=== PATIENT | female | born 1980 | race Caucasian/White ===

== ENCOUNTER 2016-05-13 07:08 | Emergency (ER) | payer OTHER ==
[2016-05-13 07:30] VITALS: BP 109/72
--- NOTE | 2016-05-13 07:59 | UC ---
FLU HPI - HPI Summary HPI Summary: PT HAS BEEN FEELING FATIGUED AND "RUN DOWN" FOR ABOUT A WEEK. LAST NIGHT DEVELOPED MIGRAINE SAMPSON AND THIS MORNING N/V, BODY ACHES, CHILLS, CHEST CONGESTION AND COUGH. - History of Current Complaint Chief Complaint: UCGeneralIllness Stated Complaint: FLU COMPLAINT Time Seen by Provider: 05/13/16 07:50 Hx Obtained From: Patient Hx Last Menstrual Period: 2 days ago Onset/Duration: Gradual Onset, Lasting Days, Still Present Severity Currently: Moderate Severity Initially: Moderate Pain Intensity: 8 Pain Scale Used: 0-10 Numeric Associated Signs & Symptoms: Positive: Fever - SUBJECTIVE, Myalgia, Cough, Sore Throat, Nasal Congestion, Headache, Vomiting - Allergy/Home Medications Allergies/Adverse Reactions: Allergies Allergy/AdvReac Type Severity Reaction Status Date / Time Sulfa Drugs Allergy Severe DISORIENTAT Verified 05/13/16 07:21 ION Morphine Allergy MIGRAINES Verified 05/13/16 07:21 Home Medications: Home Medications [id number] [Nyquil Severe Cold/Flu 5-6.25-10-325 mg/15Ml] 1 PO PRN 05/13/16 [History] PMH/Surg Hx/FS Hx/Imm Hx Endocrine History Of: Denies: Diabetes, Thyroid Disease Cardiovascular History Of: Denies: Cardiac Disorders, Hypertension, Pacemaker/ICD, Congestive Heart Failure Respiratory History Of: Denies: COPD, Asthma GI/ History Of: Denies: Ulcer, Renal Disease Neurological History Of: Reports: Migraine - TAKING MED. FOR Psychological History Of: Reports: Anxiety - SLIGHT? - Surgical History Surgical History: None Surgery Procedure, Year, and Place: CYST REMOVED FROM [id number]. GRANULA REMOVED FROM MOUTH-1987 - Family History Known Family History: Negative: Blood Disorder - Social History Alcohol Use: Occasionally Substance Use Type: None Smoking Status (MU): Never Smoked Tobacco - Immunization History Most Recent Influenza Vaccination: doesn't get Review of Systems Constitutional: Fever, Chills, Fatigue ENT: Sore Throat, Nasal Discharge Respiratory: Cough Cardiovascular: Negative Gastrointestinal: Vomiting, Other - NAUSEA Musculoskeletal: Myalgia Neurological: Headache All Other Systems Reviewed And Are Negative: Yes Physical Exam Triage Information Reviewed: Yes Appearance: No Pain Distress, Well-Nourished, Ill-Appearing - MODERATE Vital Signs: Initial Vital Signs Temp 99.3 F 05/13/16 07:23 Pulse 85 05/13/16 07:23 Resp 19 05/13/16 07:23 BP 109/72 05/13/16 07:23 Pulse Ox 100 05/13/16 07:23 Vital Signs Reviewed: Yes Eyes: Positive: Conjunctiva Clear ENT: Positive: Hearing grossly normal, Pharynx normal, TMs normal Neck: Positive: Supple, Nontender, No Lymphadenopathy Respiratory Exam: Normal Cardiovascular Exam: Normal Abdomen Description: Positive: Soft Musculoskeletal: Positive: No Edema Neurological: Positive: Alert Psychological: Positive: Normal Response To Family, Age Appropriate Behavior Skin: Negative: rashes Diagnostics - Laboratory Diagnostic Studies Completed/Ordered: RAPID FLU NEGATIVE Flu Course/Dx - Differential Dx/Diagnosis Provider Diagnoses: ACUTE VIRAL SYNDROME Discharge - Discharge Plan Condition: Stable Disposition: HOME Patient Education Materials: Viral Syndrome (ED) Referrals: Savita Campos MD [Primary Care Provider] - If Needed Additional Instructions: REST, HYDRATE, OTC MEDS NEEDED. SYMPTOMS USUALLY PEAK AROUND DAYS 3-5 AND THEN RESOLVE OVER 1- 2 WEEKS. SEEK FOLLOW-UP IF YOU ARE NOT IMPROVING EXPECTED. FLU SWAB NEGATIVE VIRAL SYNDROME: The physician has diagnosed a viral infection. Viruses not only cause "colds," but can cause many different symptoms including generalized aching, fever, headache, cough, diarrhea, nausea, vomiting, and fatigue. The treatment, for the most part, is simply relief of symptoms. This means that antibiotics are usually not given. Rest, fluids, pain medications and, occasionally, medication for the specific symptoms that are most bothersome will be prescribed. Contact the physician if you develop any new or unusual symptoms such as severe headache, stiff neck, high fever, chest pain, productive cough, or shortness of breath. You should be rechecked if you don't see marked improvement within seven to 10 days.
== END 2016-05-13 08:15 | disposition home or self-care (01) ==
LOC: UCEAST 07:08
DX: R51 Headache (principal); R11.2 Nausea with vomiting, unspecified; R05 Cough; R50.9 Fever, unspecified; B34.9 Viral infection, unspecified
CPT/HCPCS: 87502; 99211; G0463

== ENCOUNTER 2017-05-05 15:59 | Emergency (ER) | payer OTHER ==
[2017-05-05 18:19] VITALS: BP 123/69
--- NOTE | 2017-05-08 16:01 | UC ---
- Progress Note Progress Note: please notify pt NO BV may stop Flagyl should see her MD if not better
--- NOTE | 2017-05-30 15:46 | UC ---
Complaint Female HPI - HPI Summary HPI Summary: urinary pain burning urgency and vaginal itching with odor - History Of Current Complaint Chief Complaint: UCGU Stated Complaint: FREQUENT AND BURNING UNRINATION Time Seen by Provider: 05/05/17 17:19 Hx Obtained From: Patient Hx Last Menstrual Period: 04/26/17 ?: No Onset/Duration: Gradual Onset, Lasting Days, Still Present Timing: Constant Severity Initially: Mild Severity Currently: Mild Pain Intensity: 3 Pain Scale Used: 0-10 Numeric Character: Burning Aggravating Factor(s): Urination Associated Signs And Symptoms: Positive: Vaginal Discharge - Allergies/Home Medications Allergies/Adverse Reactions: Allergies Allergy/AdvReac Type Severity Reaction Status Date / Time MS Sulfa Drugs [Sulfa Drugs] Allergy Severe DISORIENTAT Verified 05/05/17 16:15 ION MS Morphine [Morphine] Allergy MIGRAINES Verified 05/05/17 16:15 PMH/Surg Hx/FS Hx/Imm Hx Previously Healthy: No Neurological History: Migraine - Surgical History Surgical History: None Surgery Procedure, Year, and Place: CYST REMOVED FROM [id number]. GRANULA REMOVED FROM MOUTH-1987 - Family History Known Family History: Negative: Blood Disorder - Social History Occupation: Employed Full-time Lives: With Family Alcohol Use: Occasionally Substance Use Type: None Smoking Status (MU): Never Smoked Tobacco - Immunization History Most Recent Influenza Vaccination: doesn't get Review of Systems Constitutional: Negative Skin: Negative Eyes: Negative ENT: Negative Respiratory: Negative Cardiovascular: Negative Gastrointestinal: Negative Genitourinary: Frequency, Urgency, Vaginal/Penile Burning, Vaginal/Penile Itching, Vaginal/Penile Discharge Motor: Negative Neurovascular: Negative Musculoskeletal: Negative Neurological: Negative Psychological: Negative Is Patient Immunocompromised?: No All Other Systems Reviewed And Are Negative: Yes Physical Exam Triage Information Reviewed: Yes Appearance: Well-Appearing, No Pain Distress, Well-Nourished Vital Signs: Initial Vital Signs Temp 99.1 F 05/05/17 16:10 Pulse 74 05/05/17 16:10 Resp 14 05/05/17 16:10 BP 95/54 05/05/17 16:10 Pulse Ox 100 05/05/17 16:10 Vital Signs Reviewed: Yes Eye Exam: Normal Eyes: Positive: Conjunctiva Clear ENT Exam: Normal ENT: Positive: Normal ENT inspection, Hearing grossly normal. Negative: Muffled voice, Hoarse voice, Dental tenderness, Sinus tenderness Dental Exam: Normal Neck exam: Normal Neck: Positive: Supple, Nontender Respiratory Exam: Normal Respiratory: Positive: Chest non-tender, No respiratory distress, No accessory muscle use Cardiovascular Exam: Normal Cardiovascular: Positive: RRR, No Murmur, Pulses Normal, Brisk Capillary Refill Abdominal Exam: Normal Abdomen Description: Positive: Nontender, No Organomegaly, Soft. Negative: CVA Tenderness (R), CVA Tenderness (L) Bowel Sounds: Positive: Present Musculoskeletal Exam: Normal Musculoskeletal: Positive: Strength Intact, ROM Intact Neurological Exam: Normal Neurological: Positive: Alert, Muscle Tone Normal Psychological Exam: Normal Skin Exam: Normal Complaint Female Dx - Course Course Of Treatment: flagyl, lab studies follow with pcp - Differential Dx/Diagnosis Provider Diagnoses: BActerial VAginosis Discharge - Discharge Plan Condition: Stable Disposition: HOME Prescriptions: metroNIDAZOLE [Flagyl 500 MG TAB] 500 mg PO BID #14 tab Patient Education Materials: Bacterial Vaginosis (ED) Referrals: Savita Campos MD [Primary Care Provider] - 1 Week
== END 2017-05-05 18:27 | disposition home or self-care (01) ==
LOC: UCEAST 15:59
DX: N76.0 Acute vaginitis (principal); B96.89 Other specified bacterial agents as the cause of diseases classified elsewhere; Z88.2 Allergy status to sulfonamides; Z88.5 Allergy status to narcotic agent
CPT/HCPCS: 81003; 81025; 87480; 87491; 87510; 87591; 87661; 99212; G0463

== ENCOUNTER 2017-07-25 00:22 | Emergency (ER) | payer OTHER ==
[2017-07-25] MEDS ORDERED: Bisacodyl SUPP* 10 MG SUPP PR ONE (01:29)
[2017-07-25] MEDS ORDERED: Metoclopramide IV* 5 MG/ML 2 ML VIAL IV SLOW PU ONE (03:28)
[2017-07-25 04:13] LABS: ABS Basophils 0 10^3/ul (0-0.2); ABS Eosinophils 0 10^3/ul (0-0.6); ABS Lymphocytes 1.1 10^3/ul (1.0-4.8); ABS Monocytes 0.5 10^3/ul (0-0.8); ABS Nucleated RBC 0 10^3/ul; Eosinophil % 0.4 % (0-6); Hematocrit 32 % (35-47); Hemoglobin 10.8 g/dl (12.0-16.0); Lymphocyte % 12.1 % (25-47); Mean Corpuscular HGB Conc 34 g/dl (31-36); Mean Corpuscular Hemoglobin 27 pg (27-31); Mean Corpuscular Volume 81 fL (80-97); Mean Platelet Volume 9.7 um3 (7.4-10.4); Nucleated Red Blood Cells % 0; Platelet Count 216 10^3/ul (150-450); Red Blood Count 3.97 10^6/ul (4.0-5.4); Red Cell Distribution Width 15 % (10.5-15); White Blood Count 8.7 10^3/ul (3.5-10.8)
[2017-07-25 04:29] LABS: EGFR Non-African American 135.7 (>60)
[2017-07-25 05:23] LABS: Urine Appearance Cloudy; Urine Blood Negative (Negative); Urine Color Yellow; Urine Ketones 2+ (Negative); Urine Protein Negative (Negative); Urine Specific Gravity 1.021 (1.010-1.030); Urine Urobilinogen Negative (Negative)
[2017-07-25 05:45] VITALS: BP 106/78
--- NOTE | 2017-08-09 05:41 | ED ---
Jacob Palencia Tecjoon, scribed for Gucci López MD on 07/25/17 at 0121 . Abdominal Pain/Female - HPI Summary HPI Summary: This patient is a 36 year old female presenting to [facility] accompanied by mother with a chief complaint of abd pain since approx. 2100 today. Patient was seen earlier for LLQ. The pain radiates to back. Patient states that the pain has moved from the flank to the front area. The pain is rated 9/10 in severity. Symptoms aggravated by nothing. Symptoms alleviated by nothing. Patient additionally reports nausea, diarrhea. Patient denies vomiting. Patient is 9 weeks . - History of Current Complaint Chief Complaint: EDAbdPain Stated Complaint: ABD PAIN Time Seen by Provider: 07/25/17 00:58 Hx Obtained From: Patient Hx Last Menstrual Period: 04/26/17 Onset/Duration: Lasting Hours, Still Present Severity Currently: Severe Pain Intensity: 9 Pain Scale Used: 0-10 Numeric Location: Discrete At: LLQ, Flank Radiates: Yes Radiates to: Back Aggravating Factor(s): Nothing Alleviating Factor(s): Nothing Associated Signs and Symptoms: Positive: Negative - vomiting, Other: - nausea Allergies/Adverse Reactions: Allergies Allergy/AdvReac Type Severity Reaction Status Date / Time morphine Allergy Severe Anaphylatic Verified 07/24/17 16:21 Shock Sulfa (Sulfonamide Allergy Severe Anaphylatic Verified 07/24/17 16:21 Antibiotics) Shock PMH/Surg Hx/FS Hx/Imm Hx Previously Healthy: No Endocrine/Hematology History: Denies: Hx Diabetes, Hx Thyroid Disease Cardiovascular History: Reports: Hx Angina Denies: Hx Congestive Heart Failure, Hx Coronary Artery Disease, Hx Hypercholesterolemia, Hx Hypertension, Hx Myocardial Infarction, Hx Pacemaker/ ICD, Hx Valvular Heart Disease Respiratory History: Denies: Hx Chronic Obstructive Pulmonary Disease (COPD) Comment Only: Hx Asthma - Patient says "I don't know" GI History: Denies: Hx Ulcer History: Reports: Other Problems/Disorders - HX OF BLADDER INFECTIONS LAST A COUPLE OF MONTHS AGO; ovarian cyst Denies: Hx Renal Disease Sensory History: Reports: Hx Contacts or Glasses - WILL WEAR GLASSES DAY OF SURGERY Denies: Hx Hearing Aid Opthamlomology History: Reports: Hx Contacts or Glasses - WILL WEAR GLASSES DAY OF SURGERY Neurological History: Reports: Hx Headaches, Hx Migraine - TAKING MED. FOR Psychiatric History: Reports: Hx Anxiety - SLIGHT?, Hx Panic Disorder - Surgical History Surgery Procedure, Year, and Place: CYST REMOVED FROM [id number]. GRANULA REMOVED FROM MOUTH-1987 Hx Anesthesia Reactions: No - Immunization History Date of Tetanus Vaccine: UNKNOWN Infectious Disease History: No Infectious Disease History: Denies: Hx Clostridium Difficile, Hx Hepatitis, Hx Human Immunodeficiency Virus (HIV), Hx of Known/Suspected MRSA, Hx Shingles, Hx Tuberculosis, Traveled Outside the [place] in Last 30 Days - Family History Known Family History: Positive: Hypertension, Diabetes Negative: Blood Disorder - Social History Lives: With Family Alcohol Use: Occasionally Alcohol Amount: none since Hx Substance Use: No Substance Use Type: Reports: None Hx Tobacco Use: No Smoking Status (MU): Never Smoked Tobacco Review of Systems Negative: Fever Positive: Abdominal Pain, Diarrhea, Nausea. Negative: Vomiting All Other Systems Reviewed And Are Negative: Yes Physical Exam - Summary Physical Exam Summary: VITAL SIGNS: Reviewed. GENERAL: Patient is a well-developed and nourished female who is lying comfortable in the stretcher. Patient is not in any acute respiratory distress. HEAD AND FACE: No signs of trauma. No ecchymosis, hematomas or skull depressions. No sinus tenderness. EYES: PERRLA, EOMI x 2, No injected conjunctiva, no nystagmus. EARS: Hearing grossly intact. Ear canals and tympanic membranes are within normal limits. MOUTH: Oropharynx within normal limits. NECK: Supple, trachea is midline, no adenopathy, no JVD, no carotid bruit, no c- spine tenderness, neck with full ROM. CHEST: Symmetric, no tenderness at palpation LUNGS: Clear to auscultation bilaterally. No wheezing or crackles. CVS: Regular rate and rhythm, S1 and S2 present, no murmurs or gallops appreciated. ABDOMEN: LLQ tenderness. Hyperactive bowel sounds. EXTREMITIES: FROM in all major joints, no edema, no cyanosis or clubbing. NEURO: Alert and oriented x 3. No acute neurological deficits. Speech is normal and follows commands. SKIN: Dry and warm Triage Information Reviewed: Yes Vital Signs On Initial Exam: Initial Vitals Temp Pulse Resp BP Pulse Ox 97.5 F 69 18 114/53 100 07/25/17 00:23 07/25/17 00:23 07/25/17 00:07/25/17 00:23 07/25/17 00:23 Vital Signs Reviewed: Yes Diagnostics - Vital Signs Vital Signs Temp Pulse Resp BP Pulse Ox 07/25/17 00:23 97.5 F 69 18 114/53 100 - Laboratory Result Diagrams: 07/25/17 04:00 07/25/17 04:00 Lab Statement: Any lab studies that have been ordered have been reviewed, and results considered in the medical decision making process. Abdominal Pain Fem Course/Dx - Course Course Of Treatment: This patient is a 36 year old female presenting to [facility] accompanied by mother with a chief complaint of abd pain since approx. 2100 today. Patient was seen earlier for LLQ pain. Bloodwork Obtained. Urinalysis Obtained. In the ED course the patient was given Dulcolax, Lactulose, Reglan. Patient will be discharged with a diagnosis of abd pain. Patient is advised to follow up with PCP in 3 days. The patient is agreeable with this plan. - Diagnoses Provider Diagnoses: Abdominal pain Discharge - Sign-Out/Discharge Documenting (check all that apply): Discharge - Discharge Plan Condition: Stable Disposition: HOME Patient Education Materials: Abdominal Pain (ED) Referrals: Savita Campos MD [Primary Care Provider] - 3 Days Additional Instructions: Return to the ED for any new or worsening symptoms. The documentation as recorded by the Jacob sol Tecjoon accurately reflects the service I personally performed and the decisions made by Maribel zimmerman Abdul, MD.
== END 2017-07-25 06:03 | disposition home or self-care (01) ==
LOC: ED 00:22
DX: O26.891 Other specified pregnancy related conditions, first trimester (principal); R10.32 Left lower quadrant pain; R11.0 Nausea; R19.7 Diarrhea, unspecified; Z3A.09 9 weeks gestation of pregnancy; Z88.5 Allergy status to narcotic agent; Z88.2 Allergy status to sulfonamides; I20.9 Angina pectoris, unspecified; G43.909 Migraine, unspecified, not intractable, without status migrainosus; F41.0 Panic disorder [episodic paroxysmal anxiety]
CPT/HCPCS: 36415; 80053; 81003; 82150; 83690; 85025; 86140; 96374; 99283; A9270-GY; J2765

== ENCOUNTER 2017-08-17 15:46 | Emergency (ER) | payer OTHER ==
[2017-08-17 19:54] LABS: ABS Basophils 0.1 10^3/ul (0-0.2); ABS Eosinophils 0.1 10^3/ul (0-0.6); ABS Lymphocytes 1.7 10^3/ul (1.0-4.8); ABS Monocytes 0.6 10^3/ul (0-0.8); ABS Nucleated RBC 0 10^3/ul; Hematocrit 32 % (35-47); Hemoglobin 10.8 g/dl (12.0-16.0); Lymphocyte % 18.2 % (25-47); Mean Corpuscular HGB Conc 34 g/dl (31-36); Mean Corpuscular Hemoglobin 27 pg (27-31); Mean Corpuscular Volume 82 fL (80-97); Mean Platelet Volume 9.6 um3 (7.4-10.4); Nucleated Red Blood Cells % 0; Platelet Count 240 10^3/ul (150-450); Red Blood Count 3.94 10^6/ul (4.0-5.4); Red Cell Distribution Width 15 % (10.5-15); White Blood Count 9.5 10^3/ul (3.5-10.8)
[2017-08-17 20:13] LABS: EGFR Non-African American 126.3 (>60)
--- NOTE | 2017-08-17 20:52 | RAD ---
Indication: Vaginal bleeding. Real-time sonography of the was performed. There is a single intrauterine gestation with movement and heart activity at 165 bpm. Amniotic fluid is within normal limits. The crown-rump length measures 6.4 cm corresponding to gestational age of 12 weeks 6 days. Estimated date of delivery is February 23, 2018. Right ovary measures 3.9 x 1.5 x 2.2 cm. Left ovary measures 4.5 x 2.1 x 3.1 cm with follicle in the left ovary. IMPRESSION: There is a single intrauterine gestation with a gestational age of 12 weeks 6 days. Estimated date of delivery is February 23, 2018. heart activity at 165 bpm. No adnexal masses.
[2017-08-17 20:55] LABS: Urine Appearance Cloudy; Urine Blood 2+ (Negative); Urine Color Yellow; Urine Ketones Negative (Negative); Urine Protein Negative (Negative); Urine Specific Gravity 1.012 (1.010-1.030); Urine Urobilinogen Negative (Negative)
[2017-08-17] MEDS ORDERED: Amoxicillin/Clavulanate TAB* 875 MG PO ONE ×2 (21:22)
--- NOTE | 2017-08-17 21:22 | ED ---
Millicent Palencia Rebecca, scribed for Jacky Crawford MD on 08/17/17 at 1917 . - HPI Summary HPI Summary: Pt is a 37 y/o F who presents to ED c/o vaginal bleeding. Reports that at approximately 1600 she noticed "pink-randal, red-randal" blood when using the bathroom on her toilet paper. Described as more than spotting, and "quite a bit of blood." Since being in the ED, pt reports her symptoms have resolved. Additionally notes mild abdominal cramping, ranked 1/10. Denies dysuria, fever, chills. Notes an episode of severe constipation 3 weeks ago which is predominantly resolved. Pt is currently 12 weeks with a due date of February 28, 2018 and she has been receiving care with Dr. Saha's practice. Blood type is B+. No PSHx on the abdomen. A1 - History of Current Complaint Chief Complaint: EDOBProblems Stated Complaint: 12 WKS PREG/ABNORMAL BLEEDING Time Seen by Provider: 08/17/17 19:09 Hx Obtained From: Patient Chief Complaint: Vaginal Bleeding Onset/Duration: Started Hours Ago, Resolved Current Severity: Mild Pain Intensity: 1 Character: Cramping Aggravating Factors: Nothing Alleviating Factors: Nothing Associated Signs and Symptoms: Positive: Vaginal Bleeding or Discharge - Bleeding. Negative: Fever - Assessment Hx Now: Yes - Allergies/Home Medications Allergies/Adverse Reactions: Allergies Allergy/AdvReac Type Severity Reaction Status Date / Time morphine Allergy Severe Anaphylatic Verified 08/17/17 16:01 Shock Sulfa (Sulfonamide Allergy Severe Anaphylatic Verified 08/17/17 16:01 Antibiotics) Shock PMH/Surg Hx/FS Hx/Imm Hx Endocrine/Hematology History: Denies: Hx Diabetes, Hx Thyroid Disease Cardiovascular History: Reports: Hx Angina Denies: Hx Congestive Heart Failure, Hx Coronary Artery Disease, Hx Hypercholesterolemia, Hx Hypertension, Hx Myocardial Infarction, Hx Pacemaker/ ICD, Hx Valvular Heart Disease Respiratory History: Denies: Hx Chronic Obstructive Pulmonary Disease (COPD) Comment Only: Hx Asthma - Patient says "I don't know" GI History: Denies: Hx Ulcer History: Reports: Other Problems/Disorders - HX OF BLADDER INFECTIONS LAST A COUPLE OF MONTHS AGO; ovarian cyst Denies: Hx Renal Disease Sensory History: Reports: Hx Contacts or Glasses - WILL WEAR GLASSES DAY OF SURGERY Denies: Hx Hearing Aid Opthamlomology History: Reports: Hx Contacts or Glasses - WILL WEAR GLASSES DAY OF SURGERY Neurological History: Reports: Hx Headaches, Hx Migraine - TAKING MED. FOR Psychiatric History: Reports: Hx Anxiety - SLIGHT?, Hx Panic Disorder - Surgical History Surgery Procedure, Year, and Place: CYST REMOVED FROM [id number]. GRANULA REMOVED FROM MOUTH-1987 Hx Anesthesia Reactions: No - Immunization History Date of Tetanus Vaccine: UNKNOWN Infectious Disease History: No Infectious Disease History: Denies: Hx Clostridium Difficile, Hx Hepatitis, Hx Human Immunodeficiency Virus (HIV), Hx of Known/Suspected MRSA, Hx Shingles, Hx Tuberculosis, Traveled Outside the [place] in Last 30 Days - Family History Known Family History: Positive: Hypertension, Diabetes Negative: Blood Disorder - Social History Alcohol Use: Occasionally Alcohol Amount: none since Substance Use Type: Reports: None Smoking Status (MU): Never Smoked Tobacco Review of Systems Negative: Fever, Chills Positive: Abdominal Pain - Cramping Positive: other - Vaginal bleeding. Negative: dysuria All Other Systems Reviewed And Are Negative: Yes Physical Exam - Summary Physical Exam Summary: General: well-appearing, no pain distress Skin: warm, color reflects adequate perfusion, dry Head: normal Eyes: EOMI, SYDNEE ENT: normal Neck: supple, nontender Respiratory: CTA, breath sounds present Cardiovascular: RRR Abdomen: soft, nontender Bowel: present Musculoskeletal: normal, strength/ROM intact Neurological: normal, sensory/motor intact, A&O x3 Psychological: affect/mood appropriate - Physical Exam Triage Information Reviewed: Yes Vital Signs On Initial Exam: Initial Vitals Temp Pulse Resp BP Pulse Ox 96.8 F 80 16 129/78 99 08/17/17 15:55 08/17/17 15:55 08/17/17 15:55 08/17/17 15:55 08/17/17 15:55 Vital Signs Reviewed: Yes Diagnostics - Vital Signs Vital Signs Temp Pulse Resp BP Pulse Ox 08/17/17 15:55 96.8 F 80 16 129/78 99 - Laboratory Lab Results: Lab Results 08/17/17 08/17/17 08/17/17 Range/Units 19:43 19:43 19:43 WBC 9.5 (3.5-10.8) 10^3/ul RBC 3.94 L (4.0-5.4) 10^6/ul Hgb 10.8 L (12.0-16.0) g/dl Hct 32 L (35-47) % MCV 82 (80-97) fL MCH 27 (27-31) pg MCHC 34 (31-36) g/dl RDW 15 (10.5-15) % Plt Count 240 (150-450) 10^3/ul MPV 9.6 (7.4-10.4) um3 Neut % (Auto) 73.5 (38-83) % Lymph % (Auto) 18.2 L (25-47) % [place] % (Auto) 6.5 (0-7) % Eos % (Auto) 1.0 (0-6) % Baso % (Auto) 0.8 (0-2) % Absolute Neuts (auto) 7.0 (1.5-7.7) 10^3/ul Absolute Lymphs (auto) 1.7 (1.0-4.8) 10^3/ul Absolute Monos (auto) 0.6 (0-0.8) 10^3/ul Absolute Eos (auto) 0.1 (0-0.6) 10^3/ul Absolute Basos (auto) 0.1 (0-0.2) 10^3/ul Absolute Nucleated RBC 0 10^3/ul Nucleated RBC % 0 APTT 29.5 (26.0-36.3) seconds Sodium 135 L (139-145) mmol/L Potassium 3.8 (3.5-5.0) mmol/L Chloride 102 (101-111) mmol/L Carbon Dioxide 25 (22-32) mmol/L Anion Gap 8 (2-11) mmol/L BUN 8 (6-24) mg/dL Creatinine 0.54 (0.51-0.95) mg/dL Est GFR ( Amer) 162.5 (>60) Est GFR (Non-Af Amer) 126.3 (>60) BUN/Creatinine Ratio 14.8 (8-20) Glucose 112 H (70-100) mg/dL Calcium 9.1 (8.6-10.3) mg/dL Total Bilirubin 0.20 (0.2-1.0) mg/dL AST 18 (13-39) U/L ALT 19 (7-52) U/L Alkaline Phosphatase 34 (34-104) U/L C-Reactive Protein 6.54 H (< 5.00) mg/L Total Protein 7.0 (6.4-8.9) g/dL Albumin 4.0 (3.2-5.2) g/dL Globulin 3.0 (2-4) g/dL Albumin/Globulin Ratio 1.3 (1-3) Beta HCG, Quant 123054.00 mIU/mL Urine Color Urine Appearance Urine pH (5-9) Ur Specific Velma (1.010-1.030) Urine Protein (Negative) Urine Ketones (Negative) Urine Blood (Negative) Urine Nitrate (Negative) Urine Bilirubin (Negative) Urine Urobilinogen (Negative) Ur Leukocyte Esterase (Negative) Urine WBC (Auto) (Absent) Urine RBC (Auto) (Absent) Ur Squamous Epith Cells (Absent) Urine Bacteria (Absent) Urine Glucose (Negative) Urine Ascorbic Acid (Negative) 08/17/17 Range/Units 20:30 WBC (3.5-10.8) 10^3/ul RBC (4.0-5.4) 10^6/ul Hgb (12.0-16.0) g/dl Hct (35-47) % MCV (80-97) fL MCH (27-31) pg MCHC (31-36) g/dl RDW (10.5-15) % Plt Count (150-450) 10^3/ul MPV (7.4-10.4) um3 Neut % (Auto) (38-83) % Lymph % (Auto) (25-47) % [place] % (Auto) (0-7) % Eos % (Auto) (0-6) % Baso % (Auto) (0-2) % Absolute Neuts (auto) (1.5-7.7) 10^3/ul Absolute Lymphs (auto) (1.0-4.8) 10^3/ul Absolute Monos (auto) (0-0.8) 10^3/ul Absolute Eos (auto) (0-0.6) 10^3/ul Absolute Basos (auto) (0-0.2) 10^3/ul Absolute Nucleated RBC 10^3/ul Nucleated RBC % APTT (26.0-36.3) seconds Sodium (139-145) mmol/L Potassium (3.5-5.0) mmol/L Chloride (101-111) mmol/L Carbon Dioxide (22-32) mmol/L Anion Gap (2-11) mmol/L BUN (6-24) mg/dL Creatinine (0.51-0.95) mg/dL Est GFR ( Amer) (>60) Est GFR (Non-Af Amer) (>60) BUN/Creatinine Ratio (8-20) Glucose (70-100) mg/dL Calcium (8.6-10.3) mg/dL Total Bilirubin (0.2-1.0) mg/dL AST (13-39) U/L ALT (7-52) U/L Alkaline Phosphatase (34-104) U/L C-Reactive Protein (< 5.00) mg/L Total Protein (6.4-8.9) g/dL Albumin (3.2-5.2) g/dL Globulin (2-4) g/dL Albumin/Globulin Ratio (1-3) Beta HCG, Quant mIU/mL Urine Color Yellow Urine Appearance Cloudy Urine pH 6.0 (5-9) Ur Specific Velma 1.012 (1.010-1.030) Urine Protein Negative (Negative) Urine Ketones Negative (Negative) Urine Blood 2+ A (Negative) Urine Nitrate Negative (Negative) Urine Bilirubin Negative (Negative) Urine Urobilinogen Negative (Negative) Ur Leukocyte Esterase Trace A (Negative) Urine WBC (Auto) Trace(0-5/hpf) (Absent) Urine RBC (Auto) Trace(0-2/hpf) (Absent) Ur Squamous Epith Cells Present A (Absent) Urine Bacteria 1+ A (Absent) Urine Glucose Negative (Negative) Urine Ascorbic Acid * A (Negative) Result Diagrams: 08/17/17 19:43 08/17/17 19:43 Lab Statement: Any lab studies that have been ordered have been reviewed, and results considered in the medical decision making process. - Ultrasound No standard instances Ultrasound Interpretation: No Acute Changes - There is a single intrauterine gestation with a gestational age of 12 weeks 6 days. Estimated date of delivery is February 23, 2018. heart activity at 165 bpm. No adnexal masses. ED physician reviewed this report. Ultrasound Interpretation Completed By: Radiologist Course/Dx - Course Course Of Treatment: DISCUSSED RESULTS WITH THE PATIENT. WILL START AUGMENTIN FOR THE BACTURIA. F/U OBGYN TOMORROW; RETURN IF WORSE. Assessment/Plan: Medications reviewed. Allergies noted. - Diagnoses Provider Diagnoses: Vaginal bleeding in patient at less than 20 weeks gestation, Asymptomatic bacteriuria during Discharge - Sign-Out/Discharge Documenting (check all that apply): Discharge/Admit/Transfer - Discharge - Discharge Plan Condition: Stable Disposition: HOME Prescriptions: Amoxicillin/Clavulanate TAB* [Augmentin TAB 875*] 875 mg PO BID #12 tab Patient Education Materials: First Trimester Vaginal Bleed (ED) Referrals: Savita Campos MD [Primary Care Provider] - Additional Instructions: FOLLOW UP WITH YOUR OBGYN TOMORROW. YOU HAVE SOME BACTERIA IN YOUR URINE. DISCUSS WHETHER TO CONTINUE THE ANTIBIOTIC WITH YOUR OBGYN. RETURN TO THE EMERGENCY DEPARTMENT FOR ANY WORSENING OF YOUR CONDITION OR QUESTIONS OR CONCERNS. - Billing Disposition and Condition Condition: STABLE Disposition: HOME The documentation as recorded by the Millicent sol Rebecca accurately reflects the service I personally performed and the decisions made by me, Jacky Crawford MD.
[2017-08-17 21:39] VITALS: BP 118/74
== END 2017-08-17 21:38 | disposition home or self-care (01) ==
LOC: ED 15:46
DX: O20.9 Hemorrhage in early pregnancy, unspecified (principal); O26.891 Other specified pregnancy related conditions, first trimester; R82.71 Bacteriuria; Z3A.12 12 weeks gestation of pregnancy; Z88.5 Allergy status to narcotic agent; Z88.2 Allergy status to sulfonamides
CPT/HCPCS: 36415; 76801; 80053; 81003; 81015; 84702; 85025; 85730; 86140; 87086; 99282; A9270-GY

== ENCOUNTER 2019-04-03 11:20 | Emergency (ER) | payer OTHER ==
[2019-04-03 12:13] VITALS: BP 101/66
--- NOTE | 2019-04-03 12:16 | UC ---
Abdominal Pain Female HPI - HPI Summary HPI Summary: 38 yo female presents with headache. She tells me that she has a history of migraines for many years. She has not had one in about a year or so until yesterday. Last night she developed a frontal headache, light sensitivity, and mild nausea. She took tylenol, which helped a little. This morning she felt better, but as the morning has gone on her headache has increased. She mentions that she is traveling from out of town and has a prescription for imitrex at home, but not with her. Her 1 yo son has been sick with a stomach bug the last 2 days and is having diarrhea. Her father is also elderly and having health issues. Both of these events have caused increased stress over the last week. She denies dizziness, vision changes, numbness, sinus symptoms, cough, SOB, chest pain, abdominal pain, vomiting, dysuria. - History of Current Complaint Chief Complaint: UCHeadabroderick Stated Complaint: HEADACHE ABD PAIN SORE THROAT Time Seen by Provider: 04/03/19 12:16 Hx Obtained From: Patient Hx Last Menstrual Period: 04/03/19 Onset/Duration: Sudden Onset Severity Initially: Moderate Severity Currently: Moderate Pain Intensity: 8 Pain Scale Used: 0-10 Numeric Allergies/Adverse Reactions: Allergies Allergy/AdvReac Type Severity Reaction Status Date / Time morphine Allergy Severe Anaphylatic Verified 04/03/19 12:08 Shock Sulfa (Sulfonamide Allergy Severe Anaphylatic Verified 04/03/19 12:08 Antibiotics) Shock PMH/Surg Hx/FS Hx/Imm Hx Neurological History: Migraine - Surgical History Surgical History: Yes Surgery Procedure, Year, and Place: CYST REMOVED FROM [id number]. [facility]A REMOVED FROM [facility]1987. 2018 - Family History Known Family History: Positive: Hypertension, Diabetes Negative: Blood Disorder - Social History Occupation: Employed Full-time Lives: With Family Alcohol Use: None Alcohol Amount: none since Substance Use Type: None Smoking Status (MU): Never Smoked Tobacco - Immunization History Most Recent Influenza Vaccination: doesn't get Review of Systems All Other Systems Reviewed And Are Negative: No Constitutional: Positive: Negative Skin: Positive: Negative Eyes: Positive: Photophobia ENT: Positive: Negative Respiratory: Positive: Negative Cardiovascular: Positive: Negative Gastrointestinal: Positive: Nausea Genitourinary: Positive: Negative Motor: Positive: Negative Neurovascular: Positive: Negative Musculoskeletal: Positive: Negative Neurological: Positive: Headache Psychological: Positive: Negative Physical Exam - Summary Physical Exam Summary: GENERAL: NAD. WDWN. No pain distress. SKIN: No rashes, sores, ulcers, masses, lesions. HEENT: Head: AT/NC. No raccoon eyes or battles sign. Eyes: PERRLA. EOM intact. Conjunctiva clear without inflammation or discharge. Ears: Hearing grossly normal. TMs intact, no bulging, erythema, or edema. No hemotympanum Nose: Nasal mucosa pink and moist. NTTP maxillary and frontal sinus. Throat: Posterior oropharynx without exudates, erythema, or tonsillar enlargement. Uvula midline. NECK: Supple. Nontender. FROM CHEST: CTAB. No r/r/w. No accessory muscle use. Breathing comfortably and in no distress. CV: RRR. Pulses intact. Brisk cap refill. ABDOMEN: Soft. NTTP. Bowel sounds present MSK: FROM in B/L UEs and LEs with symmetric strength. NEURO: A&Ox3. 3 word recall, remote, recent memory, ability to follow 2-step directions, and attention intact. CN: II: Peripheral serrano intact. Vision normal. III, IV, : EOMI. No nystagmus. PERRLA. V: Sensations intact and symmetric. Opens mouth and clenches teeth. VII: No facial asymmetry. Forehead wrinkles. Grins, shuts eyes, frowns, puffs cheeks. VIII: Hearing intact to finger rub. IX, X: Swallows and coughs. Uvula midline. XI: Shrugs shoulders. Turns head against resistance. XII: No tongue deviation [id number] are intact. Gait with normal base. Romberg: maintains balance, no pronator drift. Normal speech. No facial drooping. PSYCH: Age appropriate behavior. Triage Information Reviewed: Yes Vital Signs: Initial Vital Signs Temp 98.4 F 04/03/19 12:09 Pulse 64 04/03/19 12:09 Resp 18 04/03/19 12:09 BP 101/66 04/03/19 12:09 Pulse Ox 100 04/03/19 12:09 Laboratory Tests 04/03/19 04/03/19 04/03/19 12:24 12:26 12:29 POC Urine Color Red POC Urine Clarity Clear POC Urine pH 6.0 POC Ur Specif Lowes >= 1.030 POC Urine Protein 1+ A POC Ur Glucose (UA) Negative POC Urine Ketones Negative POC Urine Blood 2+ A POC Urine Nitrite Negative POC Urine Bilirubin 1+ A POC Urine Urobilinogen 0.2 POC U Leukocyte Esteras Negative POC Ur Test Influenza A (Rapid) Negative Influenza B (Rapid) Negative Group A Strep Rapid Negative 04/03/19 12:39 POC Urine Color POC Urine Clarity POC Urine pH POC Ur Specif Lowes POC Urine Protein POC Ur Glucose (UA) POC Urine Ketones POC Urine Blood POC Urine Nitrite POC Urine Bilirubin POC Urine Urobilinogen POC U Leukocyte Esteras POC Ur Test Negative Influenza A (Rapid) Influenza B (Rapid) Group A Strep Rapid Vital Signs Reviewed: Yes Abd Pain Female Course/Dx - Course Course Of Treatment: UA, strep, and flu negative. Pt currently on menstrual period. Suspect migraine. She states that she has imitrex at home for her migraines that has provided good relief in the past, but none with her here. I offered her IV fluids, toradol, and benadryl, but pt declined. Will rx for imitrex and have her try excedrin migraine if imitrex does not help. Made aware that if symptoms worsen or if she develops new symptoms - to go to the ED. She voiced understanding and agrees with the plan. - Differential Dx/Diagnosis Provider Diagnosis: Migraine Discharge ED - Sign-Out/Discharge Documenting (check all that apply): Patient Departure All imaging exams completed and their final reports reviewed: No Studies - Discharge Plan Condition: Stable Disposition: HOME Prescriptions: Aspirin/Acetaminophen/Caffeine [Excedrin Migraine Caplet] 1 each PO Q8H PRN #14 tablet PRN Reason: Headache SUMAtriptan TAB* [Imitrex TAB*] 50 mg PO ONCE PRN #5 tab PRN Reason: Headache Patient Education Materials: Migraine Headache (ED) Referrals: Savita Campos MD [Primary Care Provider] - Additional Instructions: If you develop a fever, shortness of breath, chest pain, new or worsening symptoms - please call your PCP or go to the ED immediately. Rest and drink plenty of fluids - Billing Disposition and Condition Condition: STABLE Disposition: Home - Attestation Statements Provider Attestation: I was available for consult. This patient was seen by the SA[facility]. The patient was not presented to, seen by, or examined by me. -Ruma
[2019-04-03 12:37] LABS: Influenza A Molecular NEGATIVE (Negative); Influenza B Molecular NEGATIVE (Negative)
== END 2019-04-03 13:10 | disposition home or self-care (01) ==
LOC: UCEAST 11:20
DX: G43.909 Migraine, unspecified, not intractable, without status migrainosus (principal); Z88.5 Allergy status to narcotic agent; Z88.2 Allergy status to sulfonamides
CPT/HCPCS: 81003; 84702; 87651; 99212; G0463